=== PATIENT | male | born 1965 | race Caucasian/White ===

== ENCOUNTER 2018-12-14 10:33 | Emergency (ER) | payer OTHER, MEDICAID, SELFPAY ==
[2018-12-14 10:35] VITALS: BP 130/83; PULSE 88; RESP 14; TEMP 36.7; O2SAT 98
--- NOTE | 2018-12-14 10:55 | ED.DENTAL ---
HPI - Dental/Oral General Chief complaint: Dental/Oral Stated complaint: BROKEN MOLAR Time Seen by Provider: 12/14/18 10:38 Source: patient Mode of arrival: ambulatory Limitations: no limitations History of Present Illness HPI Narrative: Otherwise healthy 53-year-old male here for evaluation of a fractured left lower 2nd molar. He states that he has had dental work on this tooth in the past. He states that it broke within the past 24 hr. He is having quite a bit of pain. He contacted a dentist in the area who told him that they could not see him for more than a month. He has other options that he can do. He came into the emergency department for evaluation. Related Data Previous Rx's Medication Instructions Recorded hydrocodone-acetaminophen [[place]] 1 tab PO Q4-6H PRN #10 tab 12/14/18 Allergies Allergy/AdvReac Type Severity Reaction Status Date / Time No Known Drug Allergies Allergy Verified 12/14/18 10:38 Review of Systems Constitutional Denies fever(s) ENT Comments: Dental pain Cardiovascular Denies dyspnea Respiratory Denies dyspnea Gastrointestinal Gastrointestinal: Denies abdominal pain PFSH Medical History Healthy adult (Acute) Social History Smoking Status: Current every day smoker Social History Smoking Status: Current every day smoker Exam Initial Vital Signs Initial Vital Signs: Vital Signs Temperature 98.0 F 12/14/18 10:35 Pulse Rate 88 12/14/18 10:35 Respiratory Rate 14 12/14/18 10:35 Blood Pressure 130/83 12/14/18 10:35 Pulse Oximetry 98 12/14/18 10:35 Const General: cooperative, healthy appearing, comfortable, well developed, well groomed and No acute distress Orientation: alert, awake and oriented x3 HENMT Teeth and gingiva: other (Left lower 2nd molar fracture) Resp Effort & Inspection: normal respiratory effort Cardio Rate: regular rate Rhythm: regular rhythm Skin Lesions: no lesions Rashes: no rashes Neuro General: alert, awake and oriented x3 Extrem General: normal to inspection and capillary refill normal Psych Appearance: grossly normal and well kempt Course Vital Signs - 8 hr 12/14/18 10:35 Temperature 98.0 F Pulse Rate 88 Respiratory Rate 14 Blood Pressure 130/83 Pulse Oximetry 98 MDM - Dental/Oral MDM Narrative Medical decision making narrative: I did place a packing over the wound. I have some concern as to how long this is going to stay. Will send him home with a short course of pain medication. There is no signs of infection. Will hold on antibiotics. Patient was instructed he did need to follow up with a dentist. He expressed understanding and agreement. Discharge Plan Departure Patient Disposition: Home Clinical Impression: Fracture of tooth Qualifiers: Encounter type: initial encounter Fracture type: open Qualified Code(s): S02.5XXB - Fracture of tooth (traumatic), initial encounter for open fracture Instructions: DI for Fractured Tooth Activity Restrictions/Additional Instructions: Continue to work on finding a local dentist. You can also contact the dental school at the [facility] if needed. Take the pain medication as needed. Prescriptions: New hydrocodone-acetaminophen [[place]] 10-325 mg tablet 1 tab PO Q4-6H PRN (Reason: pain) Qty: 10 RF: 0
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
== END 2018-12-14 11:09 | disposition home or self-care (01) ==
PROVIDERS: Emergency Provider Emergency Medicine
DX: S02.5XXA Fracture of tooth (traumatic), initial encounter for closed fracture (principal)
CPT/HCPCS: 99282

== ENCOUNTER 2019-04-16 21:04 | Emergency (ER) | payer OTHER, MEDICAID, SELFPAY ==
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
[2019-04-16] MEDS: HYDROMORPHONE 1 MG INJ 0.5 MG IV ×2 (21:31→21:56)
[2019-04-16 21:44] VITALS: BP 130/81; PULSE 99; RESP 24; TEMP 36.7; O2SAT 98; BMI 25.1
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
[2019-04-16 22:03] VITALS: BP 126/73; PULSE 93; RESP 18; O2SAT 98
[2019-04-16 22:30] VITALS: BP 138/74; PULSE 95; RESP 16; O2SAT 100
[2019-04-16] MEDS: CEFAZOLIN 1 GM/50 ML FROZ.PIGGY IV (22:56)
[2019-04-16] MEDS: KETOROLAC 60 MG/2 ML VIAL 30 MG IV (22:56)
[2019-04-16] MEDS: HYDROMORPHONE 1 MG INJ IV (23:21)
[2019-04-16] MEDS: TET,DIPH,PERTUSS(ACELL),VAC/PF 0.5 ML SYRINGE IM (23:30)
[2019-04-16] MEDS: LORazepam 2 MG/ML INJ 1 MG IV (23:40)
[2019-04-16 23:49] VITALS: BP 139/73; PULSE 88; RESP 22; O2SAT 98
[2019-04-17 00:45] VITALS: BP 137/65; PULSE 85; RESP 18; O2SAT 96
--- NOTE | 2019-04-17 00:48 | PC.NURSE ---
dressing with adaptic, telfa, and gauze applied to patient.
[2019-04-17] MEDS: HYDROCODONE/ACET 5/325 PREPACK 1 BOTTLE MISC (01:06)
== END 2019-04-17 01:18 | disposition home or self-care (01) ==
PROVIDERS: Emergency Provider Emergency Medicine
DX: S41.111A Laceration without foreign body of right upper arm, initial encounter (principal); S81.811A Laceration without foreign body, right lower leg, initial encounter; V86.56XA Driver of dirt bike or motor/cross bike injured in nontraffic accident, initial encounter; Z23 Encounter for immunization
CPT/HCPCS: 12002; 12035; 36591; 71046; 73090; 73590; 90471; 96365; 96375; 96376; 99283; 99284; 90715; J1170; J1885; J2060

== ENCOUNTER 2019-04-21 12:59 | Day surgery (SDC) | payer OTHER, MEDICAID, SELFPAY ==
[2019-04-19 12:18] VITALS: BMI 25.0
[2019-04-21] VITALS (7 sets, daily range): BP systolic 109–131; BP diastolic 61–72; PULSE 62–96; RESP 10–18; TEMP 36.2–37.3; O2SAT 96–100; BMI 25.0
[2019-04-21] MEDS: LACTATED RINGERS 1,000 ML 42 ML IV (14:06)
--- NOTE | 2019-04-21 15:25 | PM.PREOP ---
Pre-operative Note Interval Note History & Physical reviewed/Exam performed by Physician: Yes Changes to H&P: No
[2019-04-21] MEDS: CEFAZOLIN 2 GM/100 ML FROZ.PIGGY IV (15:40)
[2019-04-21] MEDS: BUPIVACAINE 0.25% W/ EPI 30 ML VIAL INJ (16:38)
[2019-04-21] MEDS: fentaNYL 100 MCG/2 ML INJ 50 MCG IV (17:25)
[2019-04-21] MEDS: OXYCODONE IR 5 MG TABLET PO ×2 (17:33→17:58)
--- NOTE | 2019-04-21 17:33 | SUR.PHASEI ---
Report was given to Deyanira Sifuentes RN, am documenting while she medicated patient for pain. Applesauce given prior to PO rx. Tolerating fluids well. Talkative, resp unlabored, skin warm and dry. CMS stable.
--- NOTE | 2019-04-21 17:34 | SUR.PHASEI ---
Care turned over to Deyanira Sifuentes RN
--- NOTE | 2019-04-21 17:48 | SUR.PHASEII ---
Assumed care from Alejandra pt brought to opd, sister called, to arrive soon. VS remain stable. ice placed to forearm, elevated higher with 2 pillows.
--- NOTE | 2019-04-21 18:29 | SUR.PHASEII ---
Sister arrived, brought in to see pt, d/c instructions discussed, all voiced an understanding. Dr. Bay to bedside- spoke with both. Pt dressed when ready and left when ready and in stable condition.
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
== END 2019-04-21 18:25 | disposition home or self-care (01) ==
PROVIDERS: PCP Nurse Practitioner Family; Visit Provider Orthopaedic Surgery Foot and Ankle Surgery
PROC: (CPT 13121; principal; 2019-04-21 14:45)
DX: S51.821A Laceration with foreign body of right forearm, initial encounter (principal); F17.210 Nicotine dependence, cigarettes, uncomplicated; V86.56XA Driver of dirt bike or motor/cross bike injured in nontraffic accident, initial encounter
CPT/HCPCS: 13121; 13122 ×3; 87070; 87075; 87077; 87186; 87205; J0690; J1100; J2250; J2405; J2704; J3010

== ENCOUNTER → 2019-05-17 13:07 | Outpatient (CLI) | payer OTHER, MEDICAID, SELFPAY | PROVIDERS: PCP Nurse Practitioner Family; Referring Provider Orthopaedic Surgery Foot and Ankle Surgery; Visit Provider Family Medicine | DX: S51.801A Unspecified open wound of right forearm, initial encounter (principal); S81.801A Unspecified open wound, right lower leg, initial encounter; L08.9 Local infection of the skin and subcutaneous tissue, unspecified; Z72.0 Tobacco use | CPT/HCPCS: 11042; 11043; 99203; 99213 ==

== ENCOUNTER → 2019-06-07 15:00 | Outpatient (CLI) | payer OTHER, MEDICAID, SELFPAY | PROVIDERS: PCP Nurse Practitioner Family; Visit Provider Family Medicine | DX: S81.801A Unspecified open wound, right lower leg, initial encounter (principal) | CPT/HCPCS: 11042 ==

== ENCOUNTER → 2019-06-14 13:55 | Outpatient (CLI) | payer OTHER, MEDICAID, SELFPAY | PROVIDERS: PCP Nurse Practitioner Family; Visit Provider Family Medicine | DX: S81.801A Unspecified open wound, right lower leg, initial encounter (principal) | CPT/HCPCS: 11042 ==

== ENCOUNTER → 2019-06-21 08:41 | Outpatient (CLI) | payer OTHER, MEDICAID, SELFPAY | PROVIDERS: PCP Nurse Practitioner Family; Visit Provider Family Medicine | DX: S81.801A Unspecified open wound, right lower leg, initial encounter (principal); Z72.0 Tobacco use | CPT/HCPCS: 97597 ==

== ENCOUNTER 2019-06-23 06:48 | Day surgery (SDC) | payer OTHER, MEDICAID, SELFPAY ==
[2019-06-20 08:24] VITALS: BMI 25.0
--- NOTE | 2019-06-23 07:14 | PM.PREOP ---
Pre-operative Note Interval Note History & Physical reviewed/Exam performed by Physician: Yes Changes to H&P: No
[2019-06-23] MEDS: LACTATED RINGERS 1,000 ML 42 ML IV (07:18)
[2019-06-23] MEDS: VANCOMYCIN 1,000 MG/200 ML PIGGYBACK 200 MG IV (07:18)
[2019-06-23 07:24] VITALS: BP 127/83; PULSE 103; RESP 16; TEMP 37.2; O2SAT 95; BMI 23.2
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
--- NOTE | 2019-06-23 08:10 | SUR.OPER ---
Supine on padded OR bed, head on pillow, arms secured on padded arm boards at <90 degrees abduction, legs uncrossed, safety belt at thigh, tape over blanket over lower righ leg, left leg draped free.
--- NOTE | 2019-06-23 08:17 | SUR.OPER ---
Supine on padded OR bed, head on pillow, arms secured on padded arm boards at <90 degrees abduction, legs uncrossed, safety belt at thigh, tape over blanket over lower left leg, right leg draped free
[2019-06-23] MEDS: BUPIVACAINE 0.25% W/ EPI 30 ML VIAL INJ (08:19)
[2019-06-23 08:41] VITALS: BP 117/68; PULSE 96; RESP 14; TEMP 36.1; O2SAT 98
[2019-06-23 08:47] VITALS: BP 119/74; PULSE 90; RESP 13; O2SAT 97
[2019-06-23 08:51] VITALS: BP 120/77; PULSE 89; RESP 13; O2SAT 96
[2019-06-23 09:00] VITALS: BP 126/81; PULSE 87; RESP 10; TEMP 36.5; O2SAT 94
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
== END 2019-06-23 09:19 | disposition home or self-care (01) ==
PROVIDERS: PCP Nurse Practitioner Family; Visit Provider Orthopaedic Surgery Foot and Ankle Surgery
PROC: (CPT 13160; principal; 2019-06-23 07:45)
DX: S81.811A Laceration without foreign body, right lower leg, initial encounter (principal); V29.9XXA Motorcycle rider (driver) (passenger) injured in unspecified traffic accident, initial encounter
CPT/HCPCS: 13160; J1100; J2405; J2704; J3010